=== PATIENT | female | born 1975 | race Caucasian/White ===

== ENCOUNTER 2020-08-04 09:44 | Emergency (ER) | payer BC ==
[2020-08-04 10:02] VITALS: TEMP 99; BMI 30.7
[2020-08-04] MEDS ORDERED: METOCLOPRAMIDE HCL INJECTION 10 MG/2 ML VIAL IVPUSH ONE (10:09)
[2020-08-04] MEDS ORDERED: SODIUM CHLORIDE 1,000 ML IV STA (10:09)
[2020-08-04] MEDS ORDERED: ACETAMINOPHEN 1000 MG/100 ML VIAL (NON FORMULARY) IVPB ONE (10:09)
[2020-08-04] MEDS ORDERED: METOCLOPRAMIDE HCL INJECTION 10 MG/2 ML VIAL ONE (10:31)
[2020-08-04] MEDS ORDERED: ACETAMINOPHEN INJECTION 100 ML IVPB ONE (10:32)
[2020-08-04 10:39] VITALS: PULSE 64
[2020-08-04 11:15] LABS: BASO % 0.8 % (0-2.0); EOS % 0.8 % (0-4.5); HEMATOCRIT 34.1 % (32.4-45.2); HEMOGLOBIN 10.7 GM/dL (10.7-15.3); LYMPH % 26.9 % (8-40); MCH 22.6 pg (25.7-33.7); MCHC 31.4 g/dl (32.0-36.0); MEAN CELL VOLUME 71.9 fl (80-96); MEAN PLT VOLUME 8.7 fl (7.5-11.1); MONO % 5.7 % (3.8-10.2); NEUT % 65.8 % (42.8-82.8); PLATELET COUNT 279 K/MM3 (134-434); RBC 4.74 M/mm3 (3.60-5.2); RDW 16.6 % (11.6-15.6); WHITE BLOOD COUNT 5.4 K/mm3 (4.0-10.0)
[2020-08-04 11:24] LABS: INR 1.02 (0.83-1.09); PROTHROMBIN TIME (PATIENT) 12.3 SEC (9.7-13.0)
[2020-08-04 11:26] LABS: ACTIVATED PTT 26.2 SECONDS (25.2-36.5)
[2020-08-04 11:35] LABS: CHLORIDE 106 mmol/L (98-107); POTASSIUM 4.1 mmol/L (3.5-5.1); SODIUM 137 mmol/L (136-145)
[2020-08-04 11:41] LABS: ALBUMIN 3.6 g/dl (3.4-5.0); ANION GAP 5 MMOL/L (8-16); BLOOD UREA NITROGEN 9.6 mg/dL (7-18); CO2 26 mmol/L (21-32)
[2020-08-04 11:42] LABS: GLUCOSE,RANDOM 91 mg/dL (74-106)
[2020-08-04 11:44] LABS: CHOLESTEROL 211 mg/dL (50-200); SGOT/AST 11 U/L (15-37); SGPT/ALT 16 U/L (13-61)
[2020-08-04 11:45] LABS: BILIRUBIN,TOTAL 0.3 mg/dL (0.2-1); CREATININE 0.7 mg/dL (0.55-1.3); LDL CHOLESTEROL (ONLY SJRH) 102 mg/dL (5-100); TRIGLYCERIDES 112 mg/dL (0-150)
[2020-08-04 11:46] LABS: ALK PHOS 75 U/L (45-117); TOT PROT 6.7 g/dl (6.4-8.2)
[2020-08-04 11:47] LABS: HDL CHOLESTEROL 95 mg/dL (40-60)
[2020-08-04 12:29] VITALS: BP 127/76
[2020-08-04] MEDS ORDERED: predniSONE 20 MG TABLET (UD) PO ONE (12:48)
[2020-08-04] MEDS ORDERED: predniSONE 20 MG TABLET (UD) ONE (13:14)
== END 2020-08-04 13:27 | disposition home or self-care (01) ==
LOC: JER 09:44
PROC: 3E033NZ Introduction of Analgesics, Hypnotics, Sedatives into Peripheral Vein, Percutaneous Approach (ICD-10-PCS; principal; 2020-08-04)
PROC: 3E033GC Introduction of Other Therapeutic Substance into Peripheral Vein, Percutaneous Approach (ICD-10-PCS; 2020-08-04)
PROC: 3E0337Z Introduction of Electrolytic and Water Balance Substance into Peripheral Vein, Percutaneous Approach (ICD-10-PCS; 2020-08-04)
DX: G51.0 Bell's palsy (principal)
CPT/HCPCS: 36415; 70450-TC; 80053; 80061; 82550; 83721; 84484; 84703; 85025; 85610; 85730; 86850; 86900; 86901; 93005; 93010; 99285-25; J0131